=== PATIENT | male | born 2000 | race Caucasian/White ===

== ENCOUNTER 2025-08-23 22:33 | Emergency (ER) | payer SELFPAY ==
[2025-08-23] MEDS ORDERED: Tetracaine 0.5% PF 4 ML BOT ONE (22:45)
[2025-08-23] MEDS ORDERED: Fluorescein Opthalmic Strip ONE (22:45)
== END 2025-08-23 23:07 | disposition home or self-care (01) ==
LOC: BURERS 22:33
DX: H16.132 Photokeratitis, left eye (principal); W89.8XXA Exposure to other man-made visible and ultraviolet light, initial encounter; Y93.89 Activity, other specified
CPT/HCPCS: 99283